=== PATIENT | female | born 2000 | race Caucasian/White ===

== ENCOUNTER 2023-09-19 22:01 | Emergency (ER) | payer BC, OTHER, SELFPAY ==
[2023-09-19 22:16] VITALS: BP 113/75; PULSE 84; RESP 16; TEMP 36.9; O2SAT 98
--- NOTE | 2023-09-19 22:26 | DI.US.S_ITS ---
PROCEDURE: US OB <= 14 WEEKS FETUS INDICATIONS: sharp lower abdominal pain 13 weeks OUTSIDE/PRIOR DATING DATA: Last menstrual period (LMP): 06/15/2023. LMP-based estimated date of delivery (ROBERT): 03/21/2024. First dating scan (date and location): 09/20/2023. Estimated date of delivery (ROBERT) from first dating scan: 03/20/2024. TECHNIQUE: Real-time scanning was performed of the fetus, with image documentation and biometric measurements. Endovaginal scanning: Performed COMPARISON: None. FINDINGS: General: A single living intrauterine gestation is present. Presentation: Variable. Placenta: Placental position is anterior, without previa. Amniotic fluid index: Subjectively normal. heart rate: 143 beats per minute. Maternal cervical canal: 3.3 cm long. Normal lower limit is 2.5 cm. biometrics: Biparietal diameter: 2.4 cm, 14 weeks 1 day Head circumference: 9.3 cm, 14 weeks 1 day Abdominal circumference: 7.2 cm, 13 weeks 5 days Femur length: 1.2 cm, 13 weeks 3 days Clinically estimated gestational age: 13 weeks 5 days Composite gestational age from present scan: 13 weeks 6 days Left corpus luteum measuring 1.8 x 1.3 x 0.9 cm. Right adnexa is within normal limits. Trace free fluid. IMPRESSION: Herrera living intrauterine at 13 weeks 6 days based on today's ultrasound. No abnormality identified. Left corpus luteum measuring 1.8 cm. We strive to produce accurate, complete, and clear reports of imaging services. To assist us in improving patient care, this report was composed using standard report templates and voice recognition software. Therefore, it may contain abnormal punctuation, insertions and/or omissions. Occasional wrong-word or sound-alike substitutions may occur. Though we review the report and make efforts to correct it, we do recommend that the report be read carefully in proper context to recognize any text inaccuracies. Dictated by: Ricky Block M.D. on 09/20/2023 at 1:37 Approved by: Ricky Block M.D. on 09/20/2023 at 1:42
[2023-09-19 22:54] LABS: Add Manual Diff / Slide Review NO; Basophils Absolute Auto 0 /uL (0-100); Basophils Percent Auto 0.5 % (0-2); Eosinophils Absolute Auto 100 /uL (0-450); Hematocrit 34.4 % (36-46); Lymphocytes Absolute Auto 2000 /uL (1100-4500); Lymphocytes Percent Auto 22.4 % (25-40); Mean Corpuscular Hemoglobin 31.8 PG (26-34); Monocytes Absolute Auto 700 /uL (0-900); Monocytes Percent Auto 7.5 % (3-14); Neutrophils Absolute Auto 6000 /uL (1500-7000); Neutrophils Percent Auto 68.6 % (50-75); Platelet Count 287 X10^3/uL (150-400); Red Blood Cell Count 3.78 X10^6/uL (4.0-5.2); Red Cell Distribution Width 12.6 % (11.6-14.8); White Blood Cell Count 8.8 X10^3/uL (4.5-11.0)
[2023-09-19 23:03] LABS: Alanine Aminotransferase 13 IU/L (<35); Albumin 3.7 g/dL (3.5-5.0); Albumin Globulin Ratio 1.2 (1.0-2.8); Alkaline Phosphatase 42 U/L (38-126); Aspartate Aminotransferase 21 IU/L (14-36); Bilirubin Total 0.9 mg/dL (0.2-1.3); Blood Urea Nitrogen 7 mg/dL (7-17); Calcium 8.8 mg/dL (8.4-10.2); Carbon Dioxide 19 mmol/L (22-32); Chloride 108 mmol/L (98-107); Estimated Glomerular Filt Rate > 60 mL/min (>60); Glucose 77 mg/dL (70-100); HEMOLYSIS < 15 (0-50); Potassium 3.8 mmol/L (3.4-5.1); Sodium 134 mmol/L (137-145); Total Protein 6.7 g/dL (6.3-8.2)
[2023-09-19 23:45] LABS: HCG Quantitative /Beta subunit 125690 mIU/mL
[2023-09-20 00:40] VITALS: BP 111/54; PULSE 69; RESP 18; O2SAT 100
--- NOTE | 2023-09-20 01:40 | ED_ITS ---
HPI - General Adult General Chief complaint: OB/Uterine Contractions Stated complaint: 13 weeks , sharp pains Time Seen by Provider: 09/19/23 22:43 Source: patient Mode of arrival: Ambulatory History of Present Illness HPI narrative: 22-year-old female currently , T0P 1, last menstrual period 06/15/2023, EDC she believes is 03/28/2024, received care through [facility] clear in coop feel, now with a few hours duration of right lower quadrant abdominal discomfort. No vaginal bleeding. No leaking of fluid. No vaginal discharge. She does not have fevers or chills. She does work with some lifting of boxes, wonders if she might have had a strain. No blunt trauma or falls. No recent cough shortness of breath. No nausea or vomiting or diarrhea. No painful urination or malodorous urine. No similar symptoms before during this . Related Data Allergies Allergy/AdvReac Type Severity Reaction Status Date / Time No Known Drug Allergies Allergy Verified 09/19/23 22:16 Review of Systems Review of Systems Narrative: see HPI Patient History Social History Smoking Status: Never smoker Smoking Status: Never smoker Substance Use Type: does not use Exam Narrative Exam Narrative: GENERAL: Well-developed patient, in mild distress. HEAD: Atraumatic. Normocephalic. EYES: Pupils equal round and reactive. Extraocular motions intact. No scleral icterus. No injection or drainage. ENT: Nose without bleeding, purulent drainage. Throat without erythema, tonsillar hypertrophy or exudate. Airway patent. NECK: Trachea midline. Non tender CARDIOVASCULAR: Regular rate and rhythm without murmurs, gallops, or rubs. RESPIRATORY: Clear to auscultation. Breath sounds equal bilaterally. No wheezes, rales, or rhonchi. GASTROINTESTINAL: Abdomen soft, non-tender, nondistended. EXTREMITIES: No edema or joint tenderness. BACK: Nontender without deformity or crepitance. No flank tenderness. NEURO: AOx3. Nonfocal neuro exam SKIN: No rash or erythema of visible areas Initial Vital Signs Initial Vital Signs: Vital Signs Temperature 98.4 F 09/19/23 22:16 Pulse Rate 84 09/19/23 22:16 Respiratory Rate 16 09/19/23 22:16 Blood Pressure 113/75 09/19/23 22:16 Pulse Oximetry 98 09/19/23 22:16 Oxygen Delivery Method Room Air 09/19/23 22:16 Course Orders Ordered: ED Orders 09/19/23 22:26 US OB <= 14 weeks fetus Stat 09/19/23 22:42 Complete Blood Count AUTO DIFF Stat Comprehensive Metabolic Panel Stat HCG Quantitative /Beta subunit Stat Type and Screen Stat Vital Signs Vital signs: Vital Signs - 8 hr 09/19/23 22:16 09/20/23 00:40 09/20/23 02:29 Temperature 98.4 F Pulse Rate 84 69 85 Respiratory Rate 16 18 Blood Pressure 113/75 111/54 L 109/55 L Pulse Oximetry 98 100 100 Oxygen Delivery Method Room Air Room Air Room Air Medical Decision Making Lab Data Lab results reviewed: Yes I reviewed the patient's lab results. 09/19/23 22:42 09/19/23 22:42 Labs: Lab Results 09/19/23 Range/Units 22:42 WBC 8.8 (4.5-11.0) X10^3/uL RBC 3.78 L (4.0-5.2) X10^6/uL Hgb 12.0 (12.0-16.0) g/dL Hct 34.4 L (36-46) % MCV 91.0 (80-100) fL MCH 31.8 (26-34) PG MCHC 35.0 (30-36) % RDW 12.6 (11.6-14.8) % Plt Count 287 (150-400) X10^3/uL Neut % (Auto) 68.6 (50-75) % Lymph % (Auto) 22.4 L (25-40) % [place] % (Auto) 7.5 (3-14) % Eos % (Auto) 1.0 L (2-4) % Baso % (Auto) 0.5 (0-2) % Neut # (Auto) 6000 (4131-5522) /uL Lymph # (Auto) 2000 (9849-9823) /uL [place] # (Auto) 700 (0-900) /uL Eos # (Auto) 100 (0-450) /uL Baso # (Auto) 0 (0-100) /uL Sodium 134 L (137-145) mmol/L Potassium 3.8 (3.4-5.1) mmol/L Chloride 108 H (98-107) mmol/L Carbon Dioxide 19 L (22-32) mmol/L BUN 7 (7-17) mg/dL Creatinine 0.50 L (0.52-1.04) mg/dL Estimated GFR > 60 (>60) mL/min BUN/Creatinine Ratio 14.0 (6-22) Glucose 77 (70-100) mg/dL Calcium 8.8 (8.4-10.2) mg/dL Total Bilirubin 0.9 (0.2-1.3) mg/dL AST 21 (14-36) IU/L ALT 13 (<35) IU/L Alkaline Phosphatase 42 (38-126) U/L Total Protein 6.7 (6.3-8.2) g/dL Albumin 3.7 (3.5-5.0) g/dL Globulin 3.0 (1.7-4.1) g/dL Albumin/Globulin Ratio 1.2 (1.0-2.8) HCG, Quant 486415 mIU/mL Blood Type B Positive Antibody Screen Negative Urine Dip Bedside Urine Glucose Negative Bedside Urine Bilirubin - Negative Bedside Urine Ketone ++ 40 Urine Specific [place] 1.030 Bedside Urine Occult Blood - Negative Bedside Urine pH 5.5 Bedside Urine Protein - Negative Bedside Urine Urobilinogen - Negative Bedside Urine Nitrite - Negative Bedside Urine Leukocytes - Negative Esterase Point of care testing: Urine Dip Bedside Urine Glucose Negative Bedside Urine Bilirubin - Negative Bedside Urine Ketone ++ 40 Urine Specific [place] 1.030 Bedside Urine Occult Blood - Negative Bedside Urine pH 5.5 Bedside Urine Protein - Negative Bedside Urine Urobilinogen - Negative Bedside Urine Nitrite - Negative Bedside Urine Leukocytes - Negative Esterase Imaging Data US Pelvis OB evaluation: Radiologist's Impression: [place] [address] Ultrasound Report Signed Patient: Saida Red MR#: [id number] : 2000 Acct:[id number] Age/Sex: 22 / F Date of Service: 09/19/23 Loc: ED Accession Number: [id number] Procedure: US OB <= 14 weeks fetus Ordering Provider: Kevin Summers MD PROCEDURE: US OB <= 14 WEEKS FETUS INDICATIONS: sharp lower abdominal pain 13 weeks OUTSIDE/PRIOR DATING DATA: Last menstrual period (LMP): 06/15/2023. LMP-based estimated date of delivery (ROBERT): 03/21/2024. First dating scan (date and location): 09/20/2023. Estimated date of delivery (ROBERT) from first dating scan: 03/20/2024. TECHNIQUE: Real-time scanning was performed of the fetus, with image documentation and biometric measurements. Endovaginal scanning: Performed COMPARISON: None. FINDINGS: General: A single living intrauterine gestation is present. Presentation: Variable. Placenta: Placental position is anterior, without previa. Amniotic fluid index: Subjectively normal. heart rate: 143 beats per minute. Maternal cervical canal: 3.3 cm long. Normal lower limit is 2.5 cm. biometrics: Biparietal diameter: 2.4 cm, 14 weeks 1 day Head circumference: 9.3 cm, 14 weeks 1 day Abdominal circumference: 7.2 cm, 13 weeks 5 days Femur length: 1.2 cm, 13 weeks 3 days Clinically estimated gestational age: 13 weeks 5 days Composite gestational age from present scan: 13 weeks 6 days Left corpus luteum measuring 1.8 x 1.3 x 0.9 cm. Right adnexa is within normal limits. Trace free fluid. IMPRESSION: Mcqueen living intrauterine at 13 weeks 6 days based on today's ultrasound. No abnormality identified. Left corpus luteum measuring 1.8 cm. We strive to produce accurate, complete, and clear reports of imaging services. To assist us in improving patient care, this report was composed using standard report templates and voice recognition software. Therefore, it may contain abnormal punctuation, insertions and/or omissions. Occasional wrong-word or sound-alike substitutions may occur. Though we review the report and make efforts to correct it, we do recommend that the report be read carefully in proper context to recognize any text inaccuracies. Dictated by: Ricky Block M.D. on 09/20/2023 at 1:37 Approved by: Ricky Block M.D. on 09/20/2023 at 1:42 MDM Narrative Medical decision making narrative: 22-year-old female currently , believes she is approximately 12 weeks' gestation, right lower quadrant abdominal discomfort few hours duration, no fever on triage, no vaginal bleeding or discharge or leaking of fluid, no trauma injury known. Minimal tenderness to right lower quadrant, nondistended, no guarding or rebound tenderness. Ultrasound pelvis requested. HCG positive 120,000 noted, sent from triage. Rh positive noted. Ultrasound shows 13 week 6 days live IUP mcqueen, unremarkable placental structures, no mention chorionic hemorrhage, left-sided corpus luteum cyst, scant fluid right cul-de-sac, per [employer] tech verbal report. Await radiologist's reading Similar findings on radiology report, see imported copy. Patient given copy printed radiologist's report of her pelvic ultrasound. Advised to follow up with her OB provider. Symptoms better without specific treatment. Does not seem consistent with appendicitis or colitis or other findings. No CT abdomen and pelvis imaging for now. Counseled on use of Tylenol as needed for pain control during early . Follow up 09/26/2023 for next visit. Recheck earlier to this/nearest emergency department for any change worsening symptoms or any concerns prior. Home with family Discharge Plan Departure Patient Disposition: Home Clinical Impression: Abdominal pain, , Cystic corpus luteum Activity Restrictions/Additional Instructions: Right-sided abdominal pain, resolved. Current , by ultrasound tonight 13 weeks 6 days gestation fetus noted, live with normal heart motion, no acute changes obvious. There was mention of a left-sided corpus luteum ovarian cyst, but this was in the opposite side of your right-sided abdominal discomfort. It is possible you might have had a recently ruptured right-sided corpus luteum cyst but not obvious by exam. Your symptoms did seem to get better without symptomatic specific treatment. Seems less likely appendicitis or colitis or some other etiology at this time. You have had some recent lifting, consider also musculoskeletal cause like a muscle strain. You might also be having some early discomfort of uterine growth and stretching of the round ligament and other supporting structures, discomfort or like changes. Reassuring evaluation thus far tonight. Follow up with your regular obstetrics provider in [facility] as scheduled. Return to this/nearest emergency department for any change worsening symptoms or any concerns prior Stand Alone Forms: Patient Portal/API
[2023-09-20 02:29] VITALS: BP 109/55; PULSE 85; O2SAT 100
== END 2023-09-20 02:30 | disposition home or self-care (01) ==
PROVIDERS: Emergency Provider Emergency Medicine
DX: N83.11 Corpus luteum cyst of right ovary (principal); Z3A.13 13 weeks gestation of pregnancy
CPT/HCPCS: 36415; 76801; 80053; 81003; 84702; 85025; 86850; 86900; 86901; 99282; 99284